=== PATIENT | male | born 1985 | race African-American/Black ===

== ENCOUNTER 2017-08-01 11:47 | Emergency (ER) | payer OTHER ==
[2017-08-01] MEDS ORDERED: ONDANSETRON INJ 2 MG/ML 2 ML VIAL ONE (11:57)
[2017-08-01] MEDS ORDERED: MoRPHine SULFATE 10 MG/ML CARP/VIAL ONE (11:57)
[2017-08-01] MEDS ORDERED: FENTANYL CITRATE INJ 50 MCG/1 ML 2 ML VIAL ONE (11:57)
[2017-08-01] MEDS ORDERED: VNTHFA/IN INH (12:24)
--- NOTE | 2017-08-01 12:25 | DIAGNOSTIC IMAGING REPORT ---
L TIBIA/FIBULA 2 VIEWS ROUTINE CLINICAL HISTORY: l vo pain pain COMPARISON: None. DISCUSSION: The bones and joint spaces appear intact. There is no evidence of fracture, dislocation or bony disease. There is no evidence for soft tissue swelling. IMPRESSION: Negative study. The above report was generated using voice recognition software. It may contain grammatical, syntax or spelling errors. Electronically signed by: Octavio Moreira M.D. 08/01/2017 12:23 PM Dictated Date/Time: 08/01/2017 12:22 PM
--- NOTE | 2017-08-01 12:26 | DIAGNOSTIC IMAGING REPORT ---
L KNEE 3 VIEWS CLINICAL HISTORY: Left knee patellar dislocation. COMPARISON: None FINDINGS: Patellofemoral alignment is suboptimally assessed given lack of a sunrise view. No acute fracture is identified. Joint spaces are preserved. There is a small left knee joint effusion. IMPRESSION: 1. No acute fracture. 2. Small left knee joint effusion. Electronically signed by: Ian Maldonado M.D. 08/01/2017 12:24 PM Dictated Date/Time: 08/01/2017 12:23 PM
--- NOTE | 2017-08-01 12:43 | EMERGENCY ROOM VISIT NOTE ---
History Report prepared by Hermilo: Clarence Chatman Under the Supervision of: Dr. Victor Manuel Crews D.O. First contact with patient: 11:49 Chief Complaint: KNEEPAIN Stated Complaint: L-KNEE DISLOCATION History of Present Illness The patient is a 31 year old male who presents to the Emergency Room with complaints of left knee pain that began [employer]. The patient believes that his knee is dislocated. He rates his pain moderate is severity. The patient is currently incarcerated. Earlier today, he was playing basketball when he planted his foot and moved a separate way. He notes that a mild version of this happened two days ago, but resolved quickly. This episode today persisted. Patient was brought in by EMS he received 175 mcg of fentanyl and 4 mg IV and morphine. Pt denies headache, change in vision, fevers, chest pain, shortness of breath, nausea, vomiting, diarrhea, pain with urination, melena, weakness, or numbness. He is unable to move his leg secondary to his pain. 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 A total of 10 systems reviewed and were otherwise negative. Past Medical & Surgical No chronic past medical history Family History Patient reports no known family medical history. Social History Smoking Status: Unknown if Ever Smoked Housing Status: other (Incarcerated) Occupation Status: other (Incarcerated) Current/Historical Medications Scheduled PRN Albuterol Hfa (Ventolin Hfa), 2-4 PUFFS INH Q6H PRN for SOB/Wheezing Allergies Coded Allergies: No Known Allergies (Unverified , 08/01/17) Physical Exam Vital Signs Date Time Temp Pulse Resp B/P (MAP) Pulse Ox O2 Delivery O2 Flow Rate FiO2 08/01/17 13:30 58 18 131/67 97 08/01/17 11:50 82 20 121/67 97 Room Air Physical Exam GENERAL: Lying on right side with left knee flexed, screaming, alert, well appearing, well nourished, moderate distress, non-toxic EYE EXAM: normal conjunctiva. OROPHARYNX: no exudate, no erythema, lips, buccal mucosa, and tongue normal and mucous membranes are moist NECK: supple, no nuchal rigidity, no adenopathy, non-tender LUNGS: Clear to auscultation. Normal chest wall mechanics HEART: no murmurs, S1 normal and S2 normal ABDOMEN: abdomen soft, non-tender, normo-active bowel sounds, no masses, no rebound or guarding. BACK: Back is symmetrical on inspection and there is no deformity, no midline tenderness, no CVA tenderness. SKIN: no rashes and no bruising UPPER EXTREMITIES: upper extremities are grossly normal. LOWER EXTREMITIES: No pitting edema. Left hip and femur are nontender. Left patella located laterally. Full ROM of the left ankle. DP and PT are intact. Gross sensation intact. Skin intact. NEURO EXAM: Normal sensorium, cranial nerves II-XII grossly intact, normal speech, no gross weakness of arms, no gross weakness of legs. Medical Decision & Procedures ER Provider Diagnostic Interpretation: Radiology results as stated below per my review and the radiologist's interpretation: L TIBIA/FIBULA 2 VIEWS ROUTINE CLINICAL HISTORY: l vo pain pain COMPARISON: None. DISCUSSION: The bones and joint spaces appear intact. There is no evidence of fracture, dislocation or bony disease. There is no evidence for soft tissue swelling. IMPRESSION: Negative study. The above report was generated using voice recognition software. It may contain grammatical, syntax or spelling errors. Electronically signed by: Octavio Moreira M.D. 08/01/2017 12:23 PM Dictated Date/Time: 08/01/2017 12:22 PM L KNEE 3 VIEWS CLINICAL HISTORY: Left knee patellar dislocation. COMPARISON: None FINDINGS: Patellofemoral alignment is suboptimally assessed given lack of a sunrise view. No acute fracture is identified. Joint spaces are preserved. There is a small left knee joint effusion. IMPRESSION: 1. No acute fracture. 2. Small left knee joint effusion. Electronically signed by: Ian Maldonado M.D. 08/01/2017 12:24 PM Dictated Date/Time: 08/01/2017 12:23 PM Procedure Indication: Reduction of left patella Lateral to medial pressure was applied while extending the left knee. The patella reduced with ease. Compartments are soft. Gross sensation is intact. ED Course ED COURSE: Vital signs were reviewed and showed normal vitals The patients medical record was reviewed The above diagnostic studies were performed and reviewed. ED treatments and interventions as stated above. 1149: The patient was evaluated in room B1. A complete history and physical examination was performed. 1155: I performed a reduction procedure at this time. Please see the procedure note for further information. 1218: I updated the patient on his results. He is doing well. 1236: Upon reevaluation, the patient is resting.I discussed my findings with the patient and he understands and agrees with the treatment plan. Based on the patients age, coexisting illnesses, exam and lab findings the decision to treat as an outpatient was made. The patient remained stable while under my care. The patient appeared well at the time of discharge. Medical Decision Differential diagnosis: Etiologies such as fracture, dislocation, neurovascular compromise, compartment syndrome, soft tissue injury, as well as others were entertained. Patient is a 31-year-old male who [facility] ER [facility] jail via ambulance following receiving 175 mg of fentanyl and 4 of morphine for on exam what is a lateral left patellar dislocation. This was relocated by myself. X-rays of the knee and vo show no acute fractures. Patient was placed in knee immobilizer. There is monitor due to the large amount of narcotics that he received prior to hospital. He was [facility] instructed to follow-up with orthopedics. He was neurovascularly intact. Discussed with Pt concerning signs and symptoms to watch out for. Pt was instructed to follow up with their PCP and discussed with the patient their option to return to the ED at anytime for persistent or worsening symptoms. The appropriate anticipatory guidance and out-patient management, including indications for return to the emergency department, were explained at length to the patient and understood. Medication Reconcilliation Current Medication List: was personally reviewed by me Blood Pressure Screening Patient's blood pressure: Normal blood pressure Blood pressure disposition: Did not require urgent referral Impression Primary Impression: Patellar dislocation Scribe Attestation The scribe's documentation has been prepared under my direction and personally reviewed by me in its entirety. I confirm that the note above accurately reflects all work, treatment, procedures, and medical decision making performed by me. Departure Information Dispostion Home / Self-Care Referrals [facility] DOCUMENTATION FORM, IMPORTANT VISIT INFORMATION Patient Instructions ED Dislocation Patella, My [facility] Additional Instructions No return to any physical activity until seen by orthopedics within the next week. Please wear the immobilizer as given. Please take Tylenol and/or Motrin as given by the jail. Any new weakness or numbness, increased swelling worsening pain or any other concerning signs or symptoms please return to the ER immediately. Problem Qualifiers Primary Impression: Patellar dislocation Encounter type: initial encounter Laterality: left Qualified Codes: S83.005A - Unspecified dislocation of left patella, initial encounter
[2017-08-01 13:30] VITALS: BP 131/67; PULSE 58; O2SAT 97
== END 2017-08-01 13:39 ==
LOC: EDBD 11:47 → C.EDB 11:49
DX: S83.005A Unspecified dislocation of left patella, initial encounter (principal); X50.9XXA Other and unspecified overexertion or strenuous movements or postures, initial encounter; Y93.67 Activity, basketball

== ENCOUNTER → 2017-09-21 | Outpatient (CLI) | payer OTHER ==
[~2017-09-21] MED LIST: VNTHFA/IN INH
== END | disposition home or self-care (01) ==
LOC: C.RDSM 15:38
PROVIDERS: ATTEND Orthopaedic Surgery
DX: M79.605 Pain in left leg (principal); M25.562 Pain in left knee